=== PATIENT | female | born 1990 | race Caucasian/White ===

== ENCOUNTER → 2020-07-02 | Emergency (ER) | payer MEDICAID, OTHER ==
[~2020-07-02] VITALS: Ht 162.6 cm; Wt 61.7 kg
[~2020-07-02] MED LIST: ACETAMINOPHEN 325 MG TAB PO ONE; HYDROcodone-ACET 5/325MG TAB PO ONE
[2020-07-02 17:25] VITALS: BP 131/57
== END | disposition home or self-care (01) ==
LOC: ER 17:23
DX: S67.01XA Crushing injury of right thumb, initial encounter (principal); L60.8 Other nail disorders; Z88.0 Allergy status to penicillin; Z88.2 Allergy status to sulfonamides; X58.XXXA Exposure to other specified factors, initial encounter; Y93.89 Activity, other specified; Y92.89 Other specified places as the place of occurrence of the external cause; Y99.8 Other external cause status
CPT/HCPCS: 73140

== ENCOUNTER 2021-03-07 12:29 | Emergency (ER) | payer MEDICAID ==
[~2021-03-07] VITALS: Ht 162.6 cm; Wt 61.7 kg
[2021-03-07 13:28] LABS: Urine Blood 2+ /uL (Negative); Urine Mucus FEW (None Seen); Urine Specific Gravity 1.023 (1.001-1.035); Urine WBC 400 /hpf (0 - 5)
[2021-03-07 13:38] LABS: Urine Bacteria FEW /hpf (None Seen)
[2021-03-07 14:57] VITALS: BP 121/89
== END 2021-03-07 14:54 | disposition home or self-care (01) ==
LOC: ER 12:32
DX: N39.0 Urinary tract infection, site not specified (principal); Z88.0 Allergy status to penicillin; Z88.2 Allergy status to sulfonamides
CPT/HCPCS: 81001; 81025

== ENCOUNTER 2021-04-02 14:14 | Emergency (ER) | payer MEDICAID ==
[~2021-04-02] VITALS: Ht 162.6 cm; Wt 61.7 kg
[2021-04-02 14:35] VITALS: BP 128/73
== END 2021-04-02 15:38 | disposition home or self-care (01) ==
LOC: EDBD 14:14 → ER 14:14
DX: S39.012A Strain of muscle, fascia and tendon of lower back, initial encounter (principal); G89.29 Other chronic pain; Z88.0 Allergy status to penicillin; Z88.2 Allergy status to sulfonamides; X58.XXXA Exposure to other specified factors, initial encounter; Y93.89 Activity, other specified; Y92.89 Other specified places as the place of occurrence of the external cause; Y99.8 Other external cause status
CPT/HCPCS: 72100

== ENCOUNTER 2021-04-04 18:09 | Emergency (ER) | payer MEDICAID ==
[~2021-04-04] VITALS: Ht 162.6 cm; Wt 61.7 kg
[2021-04-04] MEDS ORDERED: SODIUM CHLORIDE 0.9% 1,000 ML IV ONE (18:30)
[2021-04-04] MEDS ORDERED: ONDANSETRON HCL 4 MG/2 ML VIAL IV ONE (18:30)
[2021-04-04 19:01] LABS: Urine Bacteria FEW /hpf (None Seen); Urine Blood 1+ /uL (Negative); Urine Mucus FEW (None Seen); Urine Specific Gravity 1.027 (1.001-1.035); Urine WBC 4 /hpf (0 - 5)
[2021-04-04 20:09] LABS: Basophils # (auto) 0 10 ^3/uL (0-0.2); Basophils % (auto) 0.2 % (0.0-2.0); Eosinophils # (auto) 0.1 10 ^3/uL (0-0.8); Eosinophils % (auto) 1.2 % (0.0-7.0); Hematocrit 46.7 % (36.0-46.0); Hemoglobin 15.2 g/dL (12.2-16.2); Lymphocytes # (auto) 0.9 10 ^3/uL (0.4-5.4); Lymphocytes % (auto) 10.6 % (10.0-50.0); Mean Corpuscular Hemoglobin 29.3 pg (28.0-32.0); Mean Corpuscular Hgb Conc. 32.7 g/dL (32.0-36.0); Mean Corpuscular Volume 89.8 fL (80.0-100.0); Monocytes # (auto) 0.5 10 ^3/uL (0-1.3); Monocytes % (auto) 5.7 % (0.0-12.0); Neutrophils # (auto) 6.9 10 ^3/uL (1.6-8.6); Neutrophils % (auto) 82.3 % (37.0-80.0); Nucleated Red Blood Cells % 0.1 %; White Blood Cell 8.3 10^3/uL (4.4-10.8)
[2021-04-04 20:29] LABS: Albumin 4.4 g/dL (3.4-5.0); Potassium 4.3 mmol/L (3.5-5.1)
[2021-04-04 20:31] LABS: BUN/Creatinine Ratio 15.4
[2021-04-04 20:48] LABS: Bilirubin, Total 1.3 mg/dL (0.2-1.0); Calcium 9.2 mg/dL (8.5-10.1); Total Protein 7.7 g/dL (6.4-8.2)
[2021-04-04 21:40] VITALS: BP 112/53
[2021-04-04] MEDS ORDERED: ACETAMINOPHEN 325 MG TAB PO ONE (22:00)
== END 2021-04-04 22:55 | disposition home or self-care (01) ==
LOC: ER 18:11
DX: N39.0 Urinary tract infection, site not specified (principal); R19.7 Diarrhea, unspecified; F12.10 Cannabis abuse, uncomplicated; Z32.02 Encounter for pregnancy test, result negative
CPT/HCPCS: 36415; 80053; 81001; 81025; 85025; 96361; 96374; 99283; J2405; J7030